=== PATIENT | male | born 1985 | race Caucasian/White ===

== ENCOUNTER → 2018-09-28 | Outpatient (CLI) | payer OTHER ==
--- NOTE | 2018-09-28 11:21 | RAD ---
MR of the left shoulder HISTORY: Worsening pain and limited range of motion, multiple sports injuries. TECHNIQUE: Routine multiplanar sequences are obtained. FINDINGS: Moderate motion degradation. Acromioclavicular joint is intact. No evidence of rotator cuff tear. No significant subdeltoid bursal fluid. No significant joint effusion. Articular cartilage grossly intact. Anteroinferior para labral cyst concerning for an underlying labral tear. Biceps tendon appears intact. No bone destruction or acute fracture. No acute soft tissue abnormality. IMPRESSION: 1. Anteroinferior para labral cyst, likely indicates an underlying labral tear. 2. No evidence of rotator cuff tear. Electronically signed by: Cholo Granados MD (09/28/2018 11:19 AM) [id number]
== END | disposition home or self-care (01) ==
LOC: MRI 09:50
PROVIDERS: ATTEND Nurse Practitioner Family
DX: M71.312 Other bursal cyst, left shoulder (principal); Z90.49 Acquired absence of other specified parts of digestive tract; Z87.891 Personal history of nicotine dependence
CPT/HCPCS: 73221